=== PATIENT | female | born 1955 | race Caucasian/White ===

== ENCOUNTER 2016-11-16 22:27 | Emergency (ER) | payer OTHER ==
[~2016-11-16] VITALS: Ht 167.6 cm; Wt 99.8 kg
[2016-11-16] MEDS ORDERED: DIAZEPAM 10 MG/2 ML DISP.SYRIN. IV ONE (23:15)
[2016-11-16] MEDS ORDERED: DIPHENHYDRAMINE 50 MG/ML VIAL IVP ONE (23:15)
[2016-11-16] MEDS ORDERED: ONDANSETRON PF 4 MG/2 ML VIAL. IV ONE (23:15)
[2016-11-16] MEDS ORDERED: PROMETHAZINE 12.5 MG in IV NORMAL SALINE 50ML 50 ML IV ONE (23:30)
--- NOTE | 2016-11-17 00:03 | ED.ADGEN ---
Past Medical History Past Medical History: Diabetes-Type II, Other Additional Past Medical Histor: MEINER'S , VERTIGO Past Surgical History: Other Additional Past Surgical Histo: SINUS X2, CTR BILAT Alcohol Use: None Drug Use: None Adult General Chief Complaint Chief Complaint: DIZZY/LIGHT HEADED HPI HPI Patient is a 60 year old woman, with a history of type 2 diabetes mellitus, M nire's disease, who presents to the emergency department with complaint of a "M nire's flare". Patient states that the symptoms began about an hour and a half ago. She states that they are consistent with her usual symptoms, including vertigo, nausea, vomiting, but more severe. Patient denies any weakness, numbness or tingling, any chest pain or short of breath, any injuries , any new or different symptoms from her typical flare. She states that she usually receives a "IV cocktail", with resolution of her symptoms. She is not taking any medications prior to coming to the ED. She was diagnosed 2 years ago. No recent travel or surgery, no fevers or chills, no urinary complaints. Review of Systems Review of Systems Constitutional: Denies fever or chills. [] Eyes: Denies change in visual acuity. [] HENT: Denies nasal congestion or sore throat. [] Respiratory: Denies cough or shortness of breath. [] Cardiovascular: Denies chest pain or edema. [] GI: Denies abdominal pain, nausea, vomiting, bloody stools or diarrhea. [] : Denies dysuria. [] Musculoskeletal: Denies back pain or joint pain. [] Integument: Denies rash. [] Neurologic: Denies headache, focal weakness or sensory changes. Vertigo, with nausea. Endocrine: Denies polyuria or polydipsia. [] Lymphatic: Denies swollen glands. [] Psychiatric: Denies depression or anxiety. [] Current Medications Current Medications Current Medications Medications (Trade) Dose Ordered Sig/Lynette Start Time Stop Time Status Last Admin Dose Admin Diazepam (Valium) 5 mg 1X ONCE 11/16/16 23:15 11/16/16 23:16 DC 11/16/16 23:38 5 MG Diphenhydramine HCl 25 mg 25 mg 1X ONCE 11/16/16 23:15 11/16/16 23:16 DC 11/16/16 23:35 25 MG Ondansetron HCl (Zofran) 4 mg 1X ONCE 11/16/16 23:15 11/16/16 23:16 DC 11/16/16 23:34 4 MG Promethazine HCl/ Sodium Chloride (Phenergan/Iv Sodium Chloride 0.9% 50ml) 50.5 ml @ 101 mls/hr 1X ONCE 11/16/16 23:30 11/16/16 23:59 DC 11/16/16 23:43 101 MLS/HR Allergies Allergies Allergies Coded Allergies Type Severity Reaction Last Updated Verified No Known Drug Allergies 11/16/16 No Physical Exam Physical Exam Constitutional: Well developed, well nourished, patient appears uncomfortable, non-toxic appearance. [] HENT: Normocephalic, atraumatic, bilateral external ears normal, oropharynx moist, no oral exudates, nose normal. [] Eyes: PERRLA, EOMI, conjunctiva normal, no discharge. [] Neck: Normal range of motion, no tenderness, supple, no stridor. [] Cardiovascular:Heart rate regular rhythm, no murmur S1, S2, rubs or gallops. Lungs & Thorax: Bilateral breath sounds clear to auscultation, no wheezing, rhonchi, rales. Abdomen: Bowel sounds normal, soft, no tenderness, no masses, no pulsatile masses. [] Skin: Warm, dry, no erythema, no rash. [] Back: No tenderness, no CVA tenderness. [] Extremities: No tenderness, no cyanosis, no clubbing, ROM intact, no edema. [] Neurologic: Alert and oriented X 3, normal motor function, normal sensory function, no focal deficits noted. Mild nystagmus noted Psychologic: Affect normal, judgement normal, mood normal. [] Current Patient Data Vital Signs Vital Signs Date Time Temp Pulse Resp B/P Pulse Ox O2 Delivery O2 Flow Rate FiO2 11/16/16 22:29 97.5 81 18 125/79 97 Room Air 97.5 EKG EKG EC: Sinus rhythm, heart rate 70 bpm, upright axis, QTC of 469, NE 182, QRS of 90, incomplete right bundle-branch block noted, with contour abnormalities noted in the anterior septal leads, abnormal ECG, does not meet STEMI criteria. As inserted by me. [] Radiology/Procedures Radiology/Procedures Not indicated. [] Course & Med Decision Making Course & Med Decision Making Pertinent Labs and Imaging studies reviewed. (See chart for details) Patient states her symptoms are consistent with previous flares. She denies any new or different symptoms, or any concerning changes. Accu-Chek in the ED is in the to 90s, patient denies any symptoms, states that she has not yet taken her evening euglycemic she does have all medications available at home. Patient received IV Phenergan, Benadryl and Valium. On reevaluation, patient states she is feeling much better, is now able to open her eyes without difficulty, nausea , vomiting, and nystagmus resolved, ambulating in the ED without issue. Patient states that she is rated go home at this time, ask for additional meclizine tablets, as feeling as if you at home. Her ENT has retired, she was given contact information for Dr. Montez of otolaryngology, along with a prescription for meclizine, and clear and detailed return instructions with which she voiced understanding and agreement. Patient discharged home in stable condition with her with plan and precautions as above. Dragon Disclaimer Dragon Disclaimer This electronic medical record was generated, in whole or in part, using a voice recognition dictation system. Departure Impression: Primary Impression: Meniere's disease Disposition: 01 HOME, SELF-CARE Condition: IMPROVED Scripts Meclizine Hcl 25 Mg Tablet1 Tab PO PRN TID PRN Vertigo #30 TAB Prov:HILDA RADFORD DO 11/17/16 HILDA RADFORD DO Nov 17, 2016 00:03
[2016-11-17 01:30] VITALS: BP 157/85
[2016-11-17] MEDS ORDERED: MECL25TA3 PO (02:02)
--- NOTE | 2016-11-17 08:05 | EKG ---
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
== END 2016-11-17 02:10 | disposition home or self-care (01) ==
LOC: ER 22:27
DX: H81.09 Meniere's disease, unspecified ear (principal); E11.9 Type 2 diabetes mellitus without complications; Z98.890 Other specified postprocedural states
CPT/HCPCS: 82947; 93005; 96365; 96375; 99285; J1200; J2405; J2550; J3360

== ENCOUNTER → 2017-03-05 | Outpatient (CLI) | payer OTHER ==
[~2017-03-05] MED LIST: MECL25TA3 PO
--- NOTE | 2017-03-05 16:20 | KCIC ---
Indication: Fall with right rib pain. Time of exam 3:30 PM There appears to be a fracture involving the anterior aspect of the right ninth rib. No significant displacement is seen. No other fractures are seen. No parenchymal contusion, effusion or pneumothorax is detected. IMPRESSION: Right anterior ninth rib fracture. Electronically signed by: Donis Moulton MD (03/05/2017 4:17 PM) [id number]
== END | disposition home or self-care (01) ==
LOC: KCIC 14:55
PROVIDERS: ATTEND Family Medicine
DX: S22.31XA Fracture of one rib, right side, initial encounter for closed fracture (principal); X58.XXXA Exposure to other specified factors, initial encounter; Y93.89 Activity, other specified; Y92.89 Other specified places as the place of occurrence of the external cause; Y99.8 Other external cause status; Z91.81 History of falling
CPT/HCPCS: 71100

== ENCOUNTER 2017-07-17 07:16 | Emergency (ER) | payer OTHER ==
[~2017-07-17] VITALS: Ht 167.6 cm; Wt 95.3 kg
[2017-07-17 07:19] VITALS: BP 168/109
[2017-07-17] MEDS ORDERED: ONDANSETRON PF 4 MG/2 ML VIAL. IV ONE (07:45)
[2017-07-17] MEDS ORDERED: MORPHINE SULFATE 10 MG/ML VIAL. IV ONE (07:45)
[2017-07-17] MEDS ORDERED: IV NORMAL SALINE 1000ML BAG 1,000 ML IV ONE (07:45)
--- NOTE | 2017-07-17 07:48 | PHYS DOC ---
Past Medical History Past Medical History: Diabetes-Type II, Kidney Stone, Other Additional Past Medical Histor: MEINER'S , VERTIGO Past Surgical History: Other Additional Past Surgical Histo: SINUS X2, CTR BILAT Alcohol Use: None Drug Use: None Adult General Chief Complaint Chief Complaint: FLANK PAIN HPI HPI Patient is a 61 year old female with history of diabetes type 2, hypertension, who presents with moderate left flank pain that began this morning at 2 AM and radiates to the left upper abdomen. Patient states she also has nausea with no vomiting. Denies any fever. Denies any urgency, frequency dysuria or hematuria. She also states she has history of arthritis on her low back. Review of Systems Review of Systems Constitutional: Denies fever or chills [] Eyes: Denies change in visual acuity, redness, or eye pain [] HENT: Denies nasal congestion or sore throat [] Respiratory: Denies cough or shortness of breath [] Cardiovascular: No additional information not addressed in HPI [] GI: Reports nausea, vomiting. Denies abdominal pain, bloody stools or diarrhea [ ] : Reports left flank pain. Denies dysuria or hematuria [] Musculoskeletal: Denies back pain or joint pain [] Integument: Denies rash or skin lesions [] Neurologic: Denies headache, focal weakness or sensory changes [] All other systems were reviewed and found to be within normal limits, except as documented in this note. Current Medications Current Medications Current Medications Medications (Trade) Dose Ordered Sig/Lynette Start Time Stop Time Status Last Admin Dose Admin Ketorolac Tromethamine (Toradol) 30 mg 1X ONCE 07/17/17 09:45 07/17/17 09:46 UNV Morphine Sulfate 2 mg 1X ONCE 07/17/17 09:45 07/17/17 09:46 UNV Ondansetron HCl (Zofran) 4 mg 1X ONCE 07/17/17 07:45 07/17/17 07:46 DC 07/17/17 07:56 4 MG Sodium Chloride 1,000 ml @ 1,000 mls/hr 1X ONCE 07/17/17 07:45 07/17/17 08:44 DC 07/17/17 08:08 1,000 MLS/HR Tamsulosin HCl (Flomax) 0.4 mg 1X ONCE 07/17/17 09:45 07/17/17 09:46 UNV Allergies Allergies Allergies Coded Allergies Type Severity Reaction Last Updated Verified No Known Drug Allergies 11/16/16 No Physical Exam Physical Exam Constitutional: Well developed, well nourished, no acute distress, non-toxic appearance. [] HENT: Normocephalic, atraumatic, bilateral external ears normal, oropharynx moist, no oral exudates, nose normal. [] Eyes: PERRLA, EOMI, conjunctiva normal, no discharge. [] Neck: Normal range of motion, no tenderness, supple, no stridor. [] Cardiovascular:Heart rate regular rhythm, no murmur [] Lungs & Thorax: Bilateral breath sounds clear to auscultation [] Abdomen: Bowel sounds normal, soft, no tenderness, no masses, no pulsatile masses. [] Skin: Warm, dry, no erythema, no rash. [] Back: No tenderness, mild left CVA tenderness. [] Extremities: No tenderness, no cyanosis, no clubbing, ROM intact, no edema. [] Neurologic: Alert and oriented X 3, normal motor function, normal sensory function, no focal deficits noted. [] Psychologic: Affect normal, judgement normal, mood normal. [] Current Patient Data Vital Signs Vital Signs Date Time Temp Pulse Resp B/P (MAP) Pulse Ox O2 Delivery O2 Flow Rate FiO2 07/17/17 07:58 18 07/17/17 07:19 97.6 91 168/109 (128) 95 Room Air 97.6 Lab Values Laboratory Tests Test 07/17/17 07:35 07/17/17 08:49 White Blood Count 7.3 x10^3/uL (4.0-11.0) Red Blood Count 5.27 x10^6/uL (3.50-5.40) Hemoglobin 16.6 g/dL (12.0-15.5) H Hematocrit 48.5 % (36.0-47.0) H Mean Corpuscular Volume 92 fL (79-100) Mean Corpuscular Hemoglobin 32 pg (25-35) Mean Corpuscular Hemoglobin Concent 34 g/dL (31-37) Red Cell Distribution Width 13.4 % (11.5-14.5) Platelet Count 188 x10^3/uL (140-400) Neutrophils (%) (Auto) 79 % (31-73) H Lymphocytes (%) (Auto) 16 % (24-48) L Monocytes (%) (Auto) 5 % (0-9) Eosinophils (%) (Auto) 1 % (0-3) Basophils (%) (Auto) 1 % (0-3) Neutrophils # (Auto) 5.7 x10^3uL (1.8-7.7) Lymphocytes # (Auto) 1.2 x10^3/uL (1.0-4.8) Monocytes # (Auto) 0.3 x10^3/uL (0.0-1.1) Eosinophils # (Auto) 0.0 x10^3/uL (0.0-0.7) Basophils # (Auto) 0.0 x10^3/uL (0.0-0.2) Sodium Level 138 mmol/L (136-145) Potassium Level 4.4 mmol/L (3.5-5.1) Chloride Level 102 mmol/L (98-107) Carbon Dioxide Level 26 mmol/L (21-32) Anion Gap 10 (6-14) Blood Urea Nitrogen 14 mg/dL (7-20) Creatinine 0.6 mg/dL (0.6-1.0) Estimated GFR (Cockcroft-Gault) 101.0 BUN/Creatinine Ratio 23 (6-20) H Glucose Level 275 mg/dL (70-99) H Calcium Level 10.3 mg/dL (8.5-10.1) H Total Bilirubin 0.4 mg/dL (0.2-1.0) Aspartate Amino Transferase (AST) 82 U/L (15-37) H Alanine Aminotransferase (ALT) 191 U/L (14-59) H Alkaline Phosphatase 100 U/L (46-116) Total Protein 8.1 g/dL (6.4-8.2) Albumin 4.1 g/dL (3.4-5.0) Albumin/Globulin Ratio 1.0 (1.0-1.7) Lipase 175 U/L (73-393) Urine Collection Type Unknown Urine Color Yellow Urine Clarity Clear Urine pH 5.5 Urine Specific Rainbow 1.025 Urine Protein 100 mg/dL (NEG-TRACE) Urine Glucose (UA) >=1000 mg/dL (NEG) Urine Ketones (Stick) 15 mg/dL (NEG) Urine Blood Large (NEG) Urine Nitrite Negative (NEG) Urine Bilirubin Negative (NEG) Urine Urobilinogen Dipstick 0.2 mg/dL (0.2 mg/dL) Urine Leukocyte Esterase Negative (NEG) Urine RBC Tntc /HPF (0-2) Urine WBC 1-4 /HPF (0-4) Urine Squamous Epithelial Cells Mod /LPF Urine Bacteria Few /HPF (0-FEW) Urine Mucus Mod /LPF Laboratory Tests 07/17/17 07:35 Laboratory Tests 07/17/17 07:35 EKG EKG [] Radiology/Procedures Radiology/Procedures []PROCEDURE: CT ABDOMEN PELVIS WO CONTRAST CT ABDOMEN PELVIS WO CONTRAST History:left flank pain, hx of kidney stones Technique: Noncontrast CT imaging was performed of the abdomen and pelvis, multiplanar reconstruction images submitted. Exposure: One or more of the following individualized dose reduction techniques were utilized for this exam: 1. Automated exposure control.2. Adjustment of the mA and/or KV according to patient size.3. Use of iterative reconstruction technique. Comparison: 02/07/2005 Findings:There is no abnormality of the limited visualized lung bases. There is mild hepatic steatosis. Accurate evaluation of the abdominal visceral organs is limited without intravenous contrast. There is no obvious focal abnormality of the spleen other than granulomas. There is no obvious focal abnormality of the pancreas. Gallbladder is present without obvious intraluminal abnormality by CT. There is a small 2 to 3 mm calculus at the left ureterovesical junction. There is very mild left hydronephrosis, left ureter not significantly dilated. There are no renal calculi. Accurate evaluation of bowel is limited without oral contrast. Bowel is not significantly dilated. Normal appendix is visualized. Some small foci of relative fat density in the lumen of the small bowel are nonspecific, small underlying lipomas possible although considered less likely given multiplicity. There is no free air or free fluid. There is no adrenal nodularity. There is multilevel lumbar degenerative disc disease greatest at L2-3 and L5-S1. There is grade 1 anterior spinal listhesis L4-5 and minimal posterior subluxation L1 relative to L2 and L2 relative to L3. There is multilevel lumbar facet degenerative change. There is multilevel lumbar neural foramina compromise greatest on the left at L4-5 and L5-S1 and on the right at L4-5, L2-3, L3-4. There is lumbar levoscoliosis. There is multilevel variable lateral recess stenosis greatest in the right at L4-5 and bilaterally at L3-4 and on the right at L2-3. There are again some nonspecific nodes near the anita hepatis, largest 1 cm short axis dimension although similar. Impression: 1. There is a small 2 to 3 mm calculus at the left ureterovesical junction, minimal left hydronephrosis. 2. There is hepatic steatosis and hepatomegaly. 3. There is multilevel lumbar degenerative disc disease and facet degenerative change, multilevel abnormal alignment. There is lumbar levoscoliosis. There is multilevel lumbar neural foramina compromise. There is variable lateral stenosis. 4. There are some similar nonspecific nodes of the anita hepatis. DICTATED and SIGNED BY: ROSMERY TOMPKINS MD DATE: 07/17/17 08 CC: JOSE FRANCE MD; TYLER VASQUEZ APRN ~ Course & Med Decision Making Course & Med Decision Making Pertinent Labs and Imaging studies reviewed. (See chart for details) Patient has left flank pain pain with hx of kidney stones. Urine negative for infection. CBC with normal WBC, otherwise no acute findings, CMP with AST of 82 , ALT of 191 and glucose of 275, she has history of diabetes. CT of the abdomen and pelvic was noted for 2-3 mm calculus on the left UVJ with minimal left hydronephrosis. Patient was also noted for hepatic stenosis and hepatomegaly, she was also noted for degenerative joint disease of the lumbar spine. Patient' s pain is well-controlled in the ED. She was given morphine Toradol Flomax and Zofran. She'll be discharged with Zofran and Flomax and hydrocodone. She was instructed to follow-up with her PCP on Wednesday as well as a urologist a choice. She was instructed to return to the ED at any point symptoms worsen. Dragon Disclaimer Dragon Disclaimer This electronic medical record was generated, in whole or in part, using a voice recognition dictation system. Departure Departure Impression: Primary Impression: Kidney stone on left side Additional Impression: Degenerative joint disease (DJD) of lumbar spine Disposition: HOME, SELF-CARE Condition: STABLE Referrals: JOSE FRANCE MD (PCP) follow up in one week Patient Instructions: Arthritis, Nonspecific, [id number], Kidney Stones, Easy -to-Read Additional Instructions: You were seen for left flank pain. Your CT of the abdomen and pelvic was noted for a 2-3 millimeter kidney stone on the left ureterovesical junction. Please take the prescribed medicines as ordered. Come back to the ED at any point symptoms worsen. Follow-up with your doctor on Wednesday as well as a urologist of your choice. We also gave you a list of doctors. Consider following up with an orthopedic doctor from the list provided. Scripts Hydrocodone/Apap 5-325 (NORCO 5-325 TABLET) 1 Each Tablet 1-2 TAB PO Q4-6HRS, #20 TAB Prov: TYLER VASQUEZ APRN 07/17/17 Ondansetron (ZOFRAN ODT) 4 Mg Tab.rapdis 1 TAB SL Q8HRS, #15 TAB Prov: TYLER VASQUEZ APRN 07/17/17 Tamsulosin Hcl (FLOMAX) 0.4 Mg Cap.er.24h 1 CAP PO DAILY, #7 CAP 11 Refills Prov: TYLER VASQUEZ APRN 07/17/17 Problem Qualifiers Additional Impression: Degenerative joint disease (DJD) of lumbar spine Spinal osteoarthritis complication: unspecified spinal osteoarthritis Qualified Codes: M47.816 - Spondylosis without myelopathy or radiculopathy, lumbar region TYLRE VASQUEZ APRN Jul 17, 2017 07:48
[2017-07-17 07:58] LABS: BASO % 1 % (0-3); EOS % 1 % (0-3); HEMATOCRIT 48.5 % (36.0-47.0); HEMOGLOBIN 16.6 g/dL (12.0-15.5); LYMPH # 1.2 x10^3/uL (1.0-4.8); LYMPH % 16 % (24-48); MEAN CORPUSCULAR HEMOGLOBIN 32 pg (25-35); MEAN CORPUSCULAR HGB CONC 34 g/dL (31-37); MEAN CORPUSCULAR VOLUME 92 fL (79-100); MONO % 5 % (0-9); NEUT % 79 % (31-73); PLATELET COUNT 188 x10^3/uL (140-400); RED BLOOD COUNT 5.27 x10^6/uL (3.50-5.40); RED CELL DISTRIBUTION WIDTH 13.4 % (11.5-14.5); WHITE BLOOD COUNT 7.3 x10^3/uL (4.0-11.0)
[2017-07-17 08:06] LABS: CALCIUM 10.3 mg/dL (8.5-10.1); CREATININE 0.6 mg/dL (0.6-1.0); POTASSIUM 4.4 mmol/L (3.5-5.1)
[2017-07-17 08:12] LABS: ALBUMIN 4.1 g/dL (3.4-5.0); TOTAL BILIRUBIN 0.4 mg/dL (0.2-1.0); TOTAL PROTEIN 8.1 g/dL (6.4-8.2)
--- NOTE | 2017-07-17 08:31 | RAD ---
CT ABDOMEN PELVIS WO CONTRAST History:left flank pain, hx of kidney stones Technique: Noncontrast CT imaging was performed of the abdomen and pelvis, multiplanar reconstruction images submitted. Exposure: One or more of the following individualized dose reduction techniques were utilized for this exam: 1. Automated exposure control.2. Adjustment of the mA and/or KV according to patient size.3. Use of iterative reconstruction technique. Comparison: 02/07/2005 Findings:There is no abnormality of the limited visualized lung bases. There is mild hepatic steatosis. Accurate evaluation of the abdominal visceral organs is limited without intravenous contrast. There is no obvious focal abnormality of the spleen other than granulomas. There is no obvious focal abnormality of the pancreas. Gallbladder is present without obvious intraluminal abnormality by CT. There is a small 2 to 3 mm calculus at the left ureterovesical junction. There is very mild left hydronephrosis, left ureter not significantly dilated. There are no renal calculi. Accurate evaluation of bowel is limited without oral contrast. Bowel is not significantly dilated. Normal appendix is visualized. Some small foci of relative fat density in the lumen of the small bowel are nonspecific, small underlying lipomas possible although considered less likely given multiplicity. There is no free air or free fluid. There is no adrenal nodularity. There is multilevel lumbar degenerative disc disease greatest at L2-3 and L5-S1. There is grade 1 anterior spinal listhesis L4-5 and minimal posterior subluxation L1 relative to L2 and L2 relative to L3. There is multilevel lumbar facet degenerative change. There is multilevel lumbar neural foramina compromise greatest on the left at L4-5 and L5-S1 and on the right at L4-5, L2-3, L3-4. There is lumbar levoscoliosis. There is multilevel variable lateral recess stenosis greatest in the right at L4-5 and bilaterally at L3-4 and on the right at L2-3. There are again some nonspecific nodes near the anita hepatis, largest 1 cm short axis dimension although similar. Impression: 1. There is a small 2 to 3 mm calculus at the left ureterovesical junction, minimal left hydronephrosis. 2. There is hepatic steatosis and hepatomegaly. 3. There is multilevel lumbar degenerative disc disease and facet degenerative change, multilevel abnormal alignment. There is lumbar levoscoliosis. There is multilevel lumbar neural foramina compromise. There is variable lateral stenosis. 4. There are some similar nonspecific nodes of the anita hepatis.
[2017-07-17 08:56] LABS: BILIRUBIN,URINE NEGATIVE (NEG); GLUCOSE,URINE >=1000 mg/dL (NEG); NITRITE,URINE NEGATIVE (NEG); PH,URINE 5.5; PROTEIN,URINE 100 mg/dL (NEG-TRACE); UROBILINOGEN,URINE 0.2 mg/dL (0.2 mg/dL)
[2017-07-17 09:05] LABS: RBC,URINE TNTC /HPF (0-2); SQUAMOUS EPITHELIAL CELL,UR MOD /LPF
[2017-07-17 09:06] LABS: BACTERIA,URINE FEW /HPF (0-FEW)
[2017-07-17] MEDS ORDERED: TAMSULOSIN 0.4 MG CAP.ER.24H. PO ONE (09:45)
[2017-07-17] MEDS ORDERED: KETOROLAC 30 MG/ML INJ. IV ONE (09:45)
[2017-07-17] MEDS ORDERED: MORPHINE SULFATE 2 MG/ML DISP.SYRIN. IV ONE (09:45)
[2017-07-17] MEDS ORDERED: HYDR-971 PO (09:47)
[2017-07-17] MEDS ORDERED: TAMS0.4C97 PO (09:47)
[2017-07-17] MEDS ORDERED: ONDA4TAB10 SL (09:47)
== END 2017-07-17 10:17 | disposition home or self-care (01) ==
LOC: ER 07:16
DX: N20.0 Calculus of kidney (principal); M47.816 Spondylosis without myelopathy or radiculopathy, lumbar region; E11.9 Type 2 diabetes mellitus without complications; I10 Essential (primary) hypertension; Z87.442 Personal history of urinary calculi
CPT/HCPCS: 36415; 74176; 80053; 81001; 83690; 85025; 96361; 96374; 96375; 96376; 99285; J1885; J2270; J2405; J7030

== ENCOUNTER → 2017-08-04 | Outpatient (CLI) | payer OTHER ==
[2017-07-17 07:19] VITALS: BP 168/109
[~2017-08-04] MED LIST changes: +HYDR-971 PO; +ONDA4TAB10 SL; +TAMS0.4C97 PO
--- NOTE | 2017-08-04 13:56 | KCIC ---
EXAMINATION: Magnetic resonance imaging (MRI) of the lumbar spine without contrast HISTORY: Lumbar spondylosis. Worsening bilateral lower extremity pain and numbness last 3 months. TECHNIQUE: Multiplanar multi-weighted MRI of the lumbar spine was performed without intravenous contrast using the standard lumbar spine protocol. Contrast information: None administered. COMPARISON: None available. FINDINGS: There is levoconvex scoliosis of the lumbar spine with apex levocurvature at L2-L3. There is minimal anterolisthesis of L4 on L5 and L5 on S1. Osseous hemangiomas are identified at L3 and L4. Otherwise, marrow signal intensity is normal on all sequences. There are no compression fractures. The conus medullaris terminates at the level of L1. The distal spinal cord signal intensity is normal. There is disc desiccation at all levels of the lumbar spine. There is a disc bulge at T11-T12 which results in mild spinal canal stenosis. Disc bulges identified at T12-L1. Limited views of the abdomen and pelvis show no soft tissue abnormality. The aorta is normal. T11-T12: Mild circumferential disc bulge. There is moderate facet arthropathy. There is mild spinal canal stenosis. No neuroforaminal stenosis. T12-L1: There is mild circumferential disc bulge. There is mild to moderate facet arthropathy. No neuroforaminal or spinal canal stenosis. L1-L2: There is mild circumferential disc bulge. There is mild facet arthropathy. There is moderate right and mild left neuroforaminal stenosis. Mild spinal canal stenosis. L2-L3: There is a circumferential disc bulge. There is moderate facet arthropathy. There is moderate to severe right and moderate left neuroforaminal stenosis. There is mild spinal canal stenosis. L3-L4: There is vacuum disc at this level. There is a central disc extrusion. There is severe facet arthropathy with ligamentum flavum infolding. There is moderate to severe bilateral neuroforaminal stenosis. There is severe spinal canal stenosis. L4-L5: There is a moderate circumferential disc bulge. There is severe facet arthropathy. There is severe bilateral neuroforaminal stenosis, left greater than right. There is mild spinal canal stenosis. L5-S1: There is a small central disc protrusion. Vacuum disc phenomena is noted at this level. There is severe facet arthropathy. Moderate left neuroforaminal stenosis. No spinal canal stenosis. IMPRESSION: 1. There is levoconvex scoliosis of lumbar spine with apex levocurvature at L2-L3. There is minimal anterolisthesis of L4 on L5 and L5 on S1. 2. Moderate degenerative changes of the lumbar spine as detailed above. Findings are most severe at L3-L4 with central disc extrusion and severe facet arthropathy with ligamentum flavum infolding resulting in moderate to severe bilateral neuroforaminal stenosis and severe spinal canal stenosis. Electronically signed by: Silvia Burger MD (08/04/2017 1:52 PM) [id number]
== END | disposition home or self-care (01) ==
LOC: KCIC MRI 12:12
PROVIDERS: ATTEND Neurological Surgery
DX: M47.816 Spondylosis without myelopathy or radiculopathy, lumbar region (principal); M48.061 Spinal stenosis, lumbar region without neurogenic claudication; M51.26 Other intervertebral disc displacement, lumbar region; R20.0 Anesthesia of skin
CPT/HCPCS: 72148

== ENCOUNTER → 2017-08-26 | Outpatient (CLI) | payer OTHER ==
[~2017-08-26] MED LIST changes: -HYDR-971 PO; +IOHEXOL 180 MG/ML 10 ML VIAL.; -MECL25TA3 PO; -ONDA4TAB10 SL; -TAMS0.4C97 PO; +methylPREDNISolone ACETATE 40 MG/ML VIAL.; +methylPREDNISolone ACETATE 80 MG/ML VIAL.
== END | disposition home or self-care (01) ==
LOC: PNCL 07:33
DX: M51.16 Intervertebral disc disorders with radiculopathy, lumbar region (principal); M48.061 Spinal stenosis, lumbar region without neurogenic claudication; E11.9 Type 2 diabetes mellitus without complications; M19.90 Unspecified osteoarthritis, unspecified site; Z87.891 Personal history of nicotine dependence; K76.0 Fatty (change of) liver, not elsewhere classified; Z98.42 Cataract extraction status, left eye; Z98.41 Cataract extraction status, right eye; Z79.82 Long term (current) use of aspirin; Z79.84 Long term (current) use of oral hypoglycemic drugs; Z82.49 Family history of ischemic heart disease and other diseases of the circulatory system
CPT/HCPCS: 62323; J1030; J1040

== ENCOUNTER → 2017-09-09 | Outpatient (CLI) | payer OTHER | END | disposition home or self-care (01) | LOC: PNCL 07:48 | DX: M51.16 Intervertebral disc disorders with radiculopathy, lumbar region (principal); M48.061 Spinal stenosis, lumbar region without neurogenic claudication | CPT/HCPCS: 62323; J1030; J1040 ==

== ENCOUNTER → 2017-12-22 | Outpatient (CLI) | payer OTHER | END | disposition home or self-care (01) | LOC: PNCL 07:56 | DX: M51.16 Intervertebral disc disorders with radiculopathy, lumbar region (principal); M48.061 Spinal stenosis, lumbar region without neurogenic claudication | CPT/HCPCS: 62323; J1030; J1040; Q9965 ==

== ENCOUNTER → 2018-03-16 | Outpatient (CLI) | payer OTHER ==
[~2018-03-16] MED LIST changes: +LIDOCAINE 1% PF 2 ML VIAL.
== END | disposition home or self-care (01) ==
LOC: PNCL 11:10
DX: M51.16 Intervertebral disc disorders with radiculopathy, lumbar region (principal); M48.061 Spinal stenosis, lumbar region without neurogenic claudication
CPT/HCPCS: 62323; J1030; J1040; Q9965

== ENCOUNTER → 2018-05-26 | Outpatient (CLI) | payer OTHER ==
[~2018-05-26] MED LIST changes: +ASPI-482 PO; +BIOT10005 PO; +CALC-494 PO; +CANA100T PO; +CELE100C PO; +CHRO1000 PO; +CYAN10005 PO; +DESO15CR2 TP; +GELA600C PO; +GLIM2TAB2 PO; +GLUC1TAB71 PO; +HYDR-971 PO; +INSU100I30 SQ; -IOHEXOL 180 MG/ML 10 ML VIAL.; +IOHEXOL 180 MG/ML 10 ML VIAL. ONE; -LIDOCAINE 1% PF 2 ML VIAL.; +LIDOCAINE 2% PF 2ML VIAL. ONE; +LIRA0.6P SQ; +LISI-338 PO; +MECL25TA3 PO; +METF10007 PO; +MULT-245 PO; +OMEG1CAP6 PO; +ONDA4TAB10 SL; +POTA10TA12 PO; +TAMS0.4C97 PO; +TRAM50TA PO; +TROL177. TP; +UBID100C26 PO; -methylPREDNISolone ACETATE 40 MG/ML VIAL.; +methylPREDNISolone ACETATE 40 MG/ML VIAL. ONE; -methylPREDNISolone ACETATE 80 MG/ML VIAL.; +methylPREDNISolone ACETATE 80 MG/ML VIAL. ONE
--- NOTE | 2018-05-26 22:44 | PAIN ---
DATE OF SERVICE: 05/26/2018 PROGRESS NOTE FOR PAIN CLINIC DIAGNOSES: Lumbar radiculopathy with lumbar spinal stenosis and lumbar degenerative disk disease. HISTORY OF PRESENT ILLNESS: The patient is a 62-year-old female who returns for followup status post lumbar epidural steroid injection x 1 this series. The patient reports about 25% improvement in the low back and right greater than left lower extremity pain. The patient reports her pain is a 9 on a scale of 10 at its worst, 8-9 on average and 0 with sitting or lying flat and is an 8 today with standing. The patient reports aching, sharp, burning, becoming more radiating, constant, more severe. The patient reports with sitting down or lying down, the pain is relieved almost completely. Standing and walking, is her chief complaint, after about 10-15 minutes, becomes where she has to sit down. The patient reports pain in the low back, right posterior gluteus, posterior thigh, lateral thigh, anterior thigh, medial thigh, medial lower leg on the right side primarily some on the left side as well. No new motor or sensory deficits and no new bowel or bladder incontinence but significant fatigability with walking with the right leg. The patient reports it does not awaken her from sleep at night. No new motor or sensory deficits and no bowel or bladder incontinence. PHYSICAL EXAMINATION: VITAL SIGNS: The patient's blood pressure is 136/83, pulse 91, respirations 18, temperature 98.2 degrees Fahrenheit, height is 5 feet 6 inches and weight is 224 pounds. GENERAL: The patient is awake, alert, oriented, appropriate and very pleasant demeanor. HEENT: Head is normocephalic and atraumatic. Extraocular muscles are intact and symmetrical. Oral cavity: Mucous membranes moist and pink. Dentition is intact. NECK: Shows anterior throat supple without palpable lymphadenopathy noted. Swallow reflex is symmetrical. CHEST: Shows normal on inspection. Breath sounds clear to auscultation bilaterally. HEART: Shows S1 and S2 clear. No murmurs auscultated. ABDOMEN: Soft, nontender and nondistended. No palpable organomegaly is noted. No rebound or guarding demonstrated. BACK: Shows spine grossly in the midline. Normal-appearing thoracic kyphosis. Some minor flattening of the lumbar lordotic curvature. Lumbar paraspinous muscle shows symmetrical on inspection. On palpation shows some moderate tenderness diffusely but only in the low lumbar distribution. The patient has good rotational motion of the lumbar spine. Basically good rotational motion laterally as well as extension and flexion without significant pain reported. EXTREMITIES: Lower extremities show deep tendon reflexes at 2+ in the patellar, 1+ tendo-calcaneus tendons. Motor exam is approximately 4 on a scale of 5 but equal and symmetrical with dorsiflexion, extension, quadriceps and hamstring flexion. Peripheral pulses are 1+ posterior tibia. No peripheral edema is noted bilaterally. Options were discussed with the patient. The patient's old chart reviewed as well as her current medication regimen updated. Current review of systems updated today as well. We will proceed with a second lumbar epidural steroid injection today with fluoroscopic guidance. Risks were again discussed including, but not limited to bleeding, infection, possibility of epidural hematoma, subsequent neurologic compromise, dural puncture, headaches, spinal cord and/or nerve damage, side effects of steroid medication and poor results regarding pain control. The patient understands and wished to proceed. The patient will return to the clinic in approximately 2 weeks for followup, was counseled as to return appointment, activity level and side effects to be aware of. DIAGNOSES: Lumbar radiculopathy with lumbar spinal stenosis and lumbar degenerative disk disease. PROCEDURES: Lumbar epidural steroid injection, translaminar approach, L4-L5 level using C-arm fluoroscopic guidance under sterile prep and drape using local anesthetic. MEDICATION INJECTED: A total of 120 mg Depo-Medrol plus 10 mL of preservative-free normal saline and 2 mL of Isovue for contrast. CONDITION AT DISCHARGE: Stable. The patient tolerated the procedure well and had no complications. ENMANUEL JACKSON MD DR: EZEQUIEL/norah JOB#: [id number] / [id number]
== END ==
LOC: PNCL 08:00
PROVIDERS: ATTEND Anesthesiology
DX: M51.16 Intervertebral disc disorders with radiculopathy, lumbar region (principal); M48.061 Spinal stenosis, lumbar region without neurogenic claudication
CPT/HCPCS: 62323; J1030; J1040; J2001; Q9965

== ENCOUNTER → 2018-05-27 | Outpatient (CLI) | payer OTHER ==
[~2018-05-27] MED LIST changes: -IOHEXOL 180 MG/ML 10 ML VIAL. ONE; -LIDOCAINE 2% PF 2ML VIAL. ONE; -methylPREDNISolone ACETATE 40 MG/ML VIAL. ONE; -methylPREDNISolone ACETATE 80 MG/ML VIAL. ONE
--- NOTE | 2018-05-27 13:42 | KCIC ---
Bilateral digital screening mammograms with 3-D tomosynthesis: Reason for examination: Routine screening. Comparison is made to previous studies dated 07/10/2015 and 06/04/2014. Bilateral mammograms in CC and oblique projections were obtained with 2-D imaging and 3-D tomosynthesis imaging on a Siemens Inspiration unit and reviewed on the workstation. Interpretation was made with the benefit of CAD. The skin and nipples show no abnormalities. No abnormal axillary lymph nodes are seen. The breast parenchyma shows scattered fatty and fibroglandular density. (Breast density: Category B.) There continues to be a small nodular density at the 12:00 B position of the right breast which is unchanged. There is also a small nodular parenchymal densities suggest anterior medially in the left breast at approximately 9:00 B position which is unchanged. There are no new dominant masses, suspicious calcifications or architectural distortion. Benign calcifications are present. Biopsy clip remains present on the right. Impression: No evidence of malignancy. Recommend routine screening. BI-RAD Category 2: Benign. "Our facility is accredited by the [employer] Mammography Program." This patient's information has been entered into a reminder system for the patient to be notified with the results of her examination and a target date for the next mammogram. Electronically signed by: Cristina Paz MD (05/27/2018 1:38 PM) [id number]
== END | disposition home or self-care (01) ==
LOC: KCIC MAMMO 08:55
PROVIDERS: ATTEND Obstetrics & Gynecology
DX: Z12.31 Encounter for screening mammogram for malignant neoplasm of breast (principal)
CPT/HCPCS: 77067

== ENCOUNTER → 2018-07-13 | Outpatient (CLI) | payer OTHER ==
[~2018-07-13] MED LIST changes: +HYDR-3164 PO; -HYDR-971 PO
--- NOTE | 2018-07-13 11:02 | KCIC ---
MRI Lumbar Spine without contrast History: Right lumbar radiculopathy, chronic back pain worse the last year Technique: Multiplanar, multi sequential noncontrast MR imaging was performed of the lumbar spine. Comparison: August 04, 2017 Findings: Lumbar vertebral body stature is maintained. There is minimal grade 1 anterior spondylolisthesis L3-4 to L5-S1 and very minimal posterior subluxation L1 relative L2 as seen previously. There is mild lumbar levoscoliosis centered near the L3 level. There are hemangiomas of the L3 and L4 vertebral bodies. There is again moderate to severe degenerative disc disease at L2-3, to a somewhat lesser degree at L1-2 and L5-S1, minimally at L3-4 and L4-5. There is again very minimal L2-3 endplate edema likely reactive/degenerative in etiology. Conus terminates at L1. L1-L2: There is minimal disc osteophyte complex and bulge. Spinal canal and neural foramina are adequate. Left extraforaminal protrusion contacts the extraforaminal left L1 nerve root, associated annular tear. L2-L3: There is again disc osteophyte complex and bulge. There is mild buckling of the ligamentum flavum. There is similar very mild narrowing of the far lateral recesses bilaterally. There is again fairly severe narrowing of the right neural foramen from posteriorly by facet and ligamentum flavum, also disc osteophyte complex inferiorly. Left neural foramen is adequate. L3-L4: There is again fairly prominent posterior protrusion and probable component of mostly contained extrusion superimposed on posterior bulge which was present previously. There is indentation upon the ventral thecal sac greatest centrally. In combination with fairly severe buckling of the ligamentum flavum and facet degenerative change greater on the right, there is overall severe spinal stenosis, lateral recess stenosis bilaterally with impingement of the descending L4 nerve roots, effacement of subarachnoid space. There is [id number] narrowing of the more distal left neural foramen, disc osteophyte complex also contacting the exiting left L3 nerve root in the distal neural foramen and proximal extraforaminal region as seen previously. There is mild narrowing of the right neural foramen greater distally also with contact of the undersurface exiting right L3 nerve root. L4-L5: There is severe right greater than left facet degenerative change. There is negligible disc osteophyte complex. There is again [id number] narrowing of the far right lateral recess, minimally on the left. There is moderate to severe left and mild right neural foramina compromise. L5-S1: There is moderate left facet degenerative change. Spinal canal is adequate. Right neural foramen is adequate. There is moderate to severe narrowing of the left neural foramen greater distally, contact of the undersurface exiting left L5 nerve root by disc osteophyte complex in the distal left neural foramen and extraforaminal region as seen previously. Impression: 1. There is again severe spinal stenosis L3-4, lateral recess stenosis bilaterally with impingement of the descending L4 nerve roots. There is multilevel lumbar neural foramina compromise, more significant narrowing on the left at L4-5 and L5-S1 and on the right at L2-3, lesser degree of narrowing at other levels as stated. There is lumbar levoscoliosis and multilevel abnormal alignment as stated. There is degenerative disc disease greatest at L2-3. Electronically signed by: Devante Qureshi MD (07/13/2018 10:59 AM) [facility]
== END | disposition home or self-care (01) ==
LOC: KCIC MRI 09:09
PROVIDERS: ATTEND Anesthesiology
DX: M51.16 Intervertebral disc disorders with radiculopathy, lumbar region (principal); M48.061 Spinal stenosis, lumbar region without neurogenic claudication
CPT/HCPCS: 72148

== ENCOUNTER → 2018-08-29 | Outpatient (CLI) | payer OTHER ==
[~2018-08-29] MED LIST changes: +ATOR20TA58 PO; +CHOL10003 PO; +DICL100G18 TP; +ZINC50TA33 PO
--- NOTE | 2018-08-29 16:12 | EKG ---
[facility] [address] [place] [address] Test Date: 2018-08-29 Test Time: 16:08:16 Pat Name: ELIZABETH ROSALES Department: Patient ID: [id number] Room: Gender: F [employer]: [facility] : 1955 Requested By: OVIDIO URRUTIA Order Number: [id number] Reading MD: Kunal Levine Measurements Intervals Mitchell Rate: 95 P: 37 CT: 180 QRS: 30 QRSD: 76 T: 3 QT: 354 QTc: 448 Interpretive Statements SINUS RHYTHM Electronically Signed On 08-31-2018 15:36:18 [employer]K PEN [employer]SEM[employer]ER by Kunal Levine
[2018-08-29 16:20] LABS: BASO % 1 % (0-3); EOS # 0.2 x10^3/uL (0.0-0.7); EOS % 3 % (0-3); HEMATOCRIT 44.2 % (36.0-47.0); HEMOGLOBIN 15.5 g/dL (12.0-15.5); LYMPH # 1.9 x10^3/uL (1.0-4.8); LYMPH % 33 % (24-48); MEAN CORPUSCULAR HEMOGLOBIN 32 pg (25-35); MEAN CORPUSCULAR HGB CONC 35 g/dL (31-37); MEAN CORPUSCULAR VOLUME 92 fL (79-100); MONO # 0.6 x10^3/uL (0.0-1.1); MONO % 10 % (0-9); NEUT % 53 % (31-73); PLATELET COUNT 200 x10^3/uL (140-400); RED BLOOD COUNT 4.84 x10^6/uL (3.50-5.40); RED CELL DISTRIBUTION WIDTH 13.3 % (11.5-14.5); WHITE BLOOD COUNT 5.6 x10^3/uL (4.0-11.0)
[2018-08-29 16:35] LABS: ALBUMIN 3.7 g/dL (3.4-5.0); ALBUMIN/GLOBULIN RATIO 0.9 (1.0-1.7); CREATININE 0.8 mg/dL (0.6-1.0); GFR 72.2; POTASSIUM 3.9 mmol/L (3.5-5.1); TOTAL BILIRUBIN 0.3 mg/dL (0.2-1.0); TOTAL PROTEIN 7.7 g/dL (6.4-8.2)
[2018-08-30 02:15] LABS: HEMOGLOBIN A1C 9.3 % (4.8-5.6)
== END | disposition home or self-care (01) ==
LOC: SURGPAT 13:45
PROVIDERS: ATTEND Neurological Surgery
DX: Z01.818 Encounter for other preprocedural examination (principal); M51.16 Intervertebral disc disorders with radiculopathy, lumbar region; M48.061 Spinal stenosis, lumbar region without neurogenic claudication; E78.5 Hyperlipidemia, unspecified
CPT/HCPCS: 36415; 80053; 83036; 85025; 87641; 93005

== ENCOUNTER → 2019-10-31 | Outpatient (CLI) | payer MEDICARE, OTHER ==
[~2019-10-31] MED LIST changes: +CYAN-25 PO; -CYAN10005 PO; -GLIM2TAB2 PO; +GLIM2TAB7 PO; +MECL-75 PO; -MECL25TA3 PO
--- NOTE | 2019-10-31 11:26 | KCIC ---
EXAM: Abdomen sonogram. HISTORY: Epigastric pain. TECHNIQUE: Sonographic imaging of the abdomen was performed. COMPARISON: None. FINDINGS: The liver is enlarged. There is hepatic steatosis. No focal hepatic lesion is seen. The gallbladder is unremarkable. The kidneys, pancreas and visualized portions of the inferior vena cava are unremarkable. The spleen is enlarged, measuring 14.5 cm. IMPRESSION: 1. Hepatomegaly and hepatic steatosis. 2. Splenomegaly. Electronically signed by: Parul Willis MD (10/31/2019 11:23 AM) [id number]
== END ==
LOC: KCIC US 09:16
PROVIDERS: ATTEND Internal Medicine
DX: K76.0 Fatty (change of) liver, not elsewhere classified (principal); R16.2 Hepatomegaly with splenomegaly, not elsewhere classified
CPT/HCPCS: 76700

== ENCOUNTER → 2019-10-31 | Outpatient (CLI) | payer MEDICARE, OTHER ==
--- NOTE | 2019-10-31 18:15 | KCIC ---
Bilateral digital screening mammograms: Reason for examination: Routine screening. Comparison is made to previous studies dated 05/27/2018 and 07/10/2015. Interpretation was made with the benefit of CAD. The skin and nipples show no abnormalities. No abnormal axillary lymph nodes are seen. The breast parenchyma shows scattered fibroglandular density. (Breast density: Category B.) There are small parenchymal asymmetries which are stable. There are no new dominant masses, suspicious calcifications or architectural distortions. Some benign calcifications are present. Biopsy clip remains present on the right. Impression: No evidence of malignancy. Recommend routine screening. BI-RADS category 2: Benign "Our facility is accredited by the [employer] Mammography Program." This patient's information has been entered into a reminder system for the patient to be notified with the results of her examination and a target date for the next mammogram. Electronically signed by: Cristina Paz MD (10/31/2019 6:12 PM) [id number]
== END ==
LOC: KCIC MAMMO 08:46
PROVIDERS: ATTEND Obstetrics & Gynecology
DX: Z12.31 Encounter for screening mammogram for malignant neoplasm of breast (principal)
CPT/HCPCS: 77067

== ENCOUNTER → 2021-01-22 | Outpatient (CLI) | payer MEDICARE, OTHER ==
[~2021-01-22] MED LIST changes: -DICL100G18 TP; +DICL100G54 TP; -LISI-338 PO; +LISI-517 PO
--- NOTE | 2021-01-22 14:30 | KCIC ---
EXAM: Bilateral digital screening mammogram with tomosynthesis. HISTORY: 65-year-old female presents for screening mammography. TECHNIQUE: Full-field digital craniocaudal and mediolateral oblique 2D and 3D tomosynthesis images of both breasts are obtained for evaluation. Computer aided detection was applied. COMPARISON: 10/31/2019 and 05/27/2018 BREAST PARENCHYMAL DENSITY: Level B - Scattered fibroglandular densities. FINDINGS: There is no new suspicious mass, microcalcification or region of architectural distortion. There is stable areas of asymmetry and nodularity within both breasts, allowing for differences in im aging technique. There is a biopsy clip within the right breast. IMPRESSION: BI-RADS Category 2: Benign finding(s). RECOMMENDATION: Annual mammography is recommended. If your mammogram demonstrates that you have dense breast tissue, which could hide abnormalities, and if you have other risk factors for breast cancer that have been identified, you might benefit from s upplemental screening tests that may be suggested by your ordering physician. Dense breast tissue, i n and of itself, is a relatively common condition. This information is not provided to cause undue c oncern, but rather to raise your awareness and to promote discussion with your physician regarding th e presence of other risk factors, in addition to dense breast tissue. A report of your mammography re sults will be sent to you and your physician. You should contact your physician if you have any ques tions or concerns regarding this report. Mammography is a sensitive method for finding small breast cancers, but it does not detect them all a nd is not a substitute for careful clinical examination. A negative mammogram does not negate a clin ically suspicious finding and should not result in delay in biopsying a clinically suspicious abnorma lity. PQRS compliance statement - Patient information was entered into a reminder system with a target due date for the next mammogram. "Our facility is accredited by the [employer] Mammography Program." Electronically signed by: Parul Willis MD (01/22/2021 2:27 PM) [email or web address]
== END ==
LOC: KCIC MAMMO 12:47
PROVIDERS: ATTEND Obstetrics & Gynecology
DX: Z12.31 Encounter for screening mammogram for malignant neoplasm of breast (principal)
CPT/HCPCS: 77063; 77067